=== PATIENT | female | born 1965 | race Caucasian/White ===

== ENCOUNTER 2018-04-08 18:25 | Emergency (ER) | payer MEDICARE, MEDICAID ==
[~2018-04-08] VITALS: Ht 170.2 cm; Wt 64.2 kg
[2018-04-08] MEDS ORDERED: traMADol 50MG tablet PO ONE (20:10)
[2018-04-08] MEDS ORDERED: ketorolac trometh inj. 60 MG/2 ML VIAL IM ONE (20:10)
[2018-04-08 20:22] VITALS: BP 151/90
== END 2018-04-08 20:23 | disposition home or self-care (01) ==
LOC: ER 18:26
DX: M79.604 Pain in right leg (principal); Z88.7 Allergy status to serum and vaccine
CPT/HCPCS: 96372; 99283; J1885

== ENCOUNTER 2018-07-31 20:38 | Emergency (ER) | payer MEDICARE, MEDICAID ==
[~2018-07-31] VITALS: Ht 170.2 cm; Wt 65.5 kg
[2018-07-31 21:17] LABS: BASOPHILS # (AUTO) 0.2 X10'3 (0-0.2); BASOPHILS % (AUTO) 1.9 % (0-1); EOSINOPHILS # (AUTO) 0.2 X10'3 (0-0.9); EOSINOPHILS % (AUTO) 2.4 % (0-6); HEMATOCRIT 34.3 % (35.0-45.0); HEMOGLOBIN 11.9 g/dl (12.0-16.0); LYMPHOCYTES # (AUTO) 3.8 X10'3 (1.1-4.8); LYMPHOCYTES % (AUTO) 37.9 % (21-51); MEAN CORPUSCULAR HEMOGLOBIN 34.7 PG (27.0-31.0); MEAN CORPUSCULAR HGB CONC 34.7 % (33.0-36.5); MEAN CORPUSCULAR VOLUME 99.9 FL (78-98); MEAN PLATELET VOLUME 8.6 FL (7.4-10.4); MONOCYTES % (AUTO) 9.9 % (2-12); NEUTROPHILS # (AUTO) 4.9 X10'3 (1.8-7.7); NEUTROPHILS % (AUTO) 47.9 % (42-75); PLATELET COUNT 105 X10'3 (140-440); RED BLOOD COUNT 3.43 X10'6 (4.20-5.60); RED CELL DISTRIBUTION WIDTH 13.1 % (11.5-14.5); WHITE BLOOD COUNT 10.1 X10'3 (4.5-11.0)
[2018-07-31 21:26] LABS: INR 1.5 INR; PROTHROMBIN TIME 14.9 SECONDS (9.0-12.0)
[2018-07-31 21:28] LABS: ALANINE AMINOTRANSFERASE 40 U/L (12-78); ALBUMIN 2.4 G/DL (3.4-5.0); ALBUMIN/GLOBULIN RATIO 0.6 (1.1-1.5); ALKALINE PHOSPHATASE 182 IU/L (46-116); ANION GAP 1 (8-16); ASPARTATE AMINO TRANSFERASE 77 U/L (10-37); BILIRUBIN,TOTAL 3.1 MG/DL (0.1-1.0); BLOOD UREA NITROGEN 18 MG/DL (7-18); BUN/CREATININE RATIO 24.3 (6.6-38.0); CALCIUM 8.1 MG/DL (8.5-10.1); CHLORIDE 101 MMOL/L (99-107); CREATININE 0.74 MG/DL (0.40-0.90); LIPASE 306 U/L (73-393); POTASSIUM 3.1 MMOL/L (3.5-5.1); SODIUM 144 MMOL/L (135-145); TOTAL PROTEIN 6.2 G/DL (6.4-8.2); eGFR 82 ML/MIN
[2018-07-31 21:45] LABS: GLUCOSE 116 MG/DL (70-104); TOTAL CARBON DIOXIDE 42.5 MMOL/L (24-32)
[2018-07-31] MEDS ORDERED: ondansetron/PF 4mg/2ml inj IV ONE (21:45)
[2018-07-31] MEDS ORDERED: morphine 4 MG/ML inj SYRINge IV PRN (21:45)
[2018-07-31] MEDS ORDERED: normal saline 1000ML IV soln IVB ONE (21:45)
[2018-07-31] MEDS ORDERED: potassium 10mEq/100ml NS w/LIDOcaine (10mg/bag) IV ONE (22:00)
[2018-07-31 23:09] VITALS: BP 111/56
[2018-07-31] MEDS ORDERED: SUCR1TAB34 PO (23:25)
[2018-07-31] MEDS ORDERED: ONDA8TAB9 PO (23:25)
== END 2018-08-01 00:15 | disposition home or self-care (01) ==
LOC: ER 20:39
DX: R10.84 Generalized abdominal pain (principal); K59.00 Constipation, unspecified; R11.10 Vomiting, unspecified; I10 Essential (primary) hypertension; F17.200 Nicotine dependence, unspecified, uncomplicated; Z88.7 Allergy status to serum and vaccine; Z87.440 Personal history of urinary (tract) infections; Z90.722 Acquired absence of ovaries, bilateral
CPT/HCPCS: 36415; 74176; 80053; 83690; 85025; 85610; 96361; 96374; 96375; 99285; J2270; J2405; J3480

== ENCOUNTER 2018-11-10 07:31 | Outpatient (CLI) | payer MEDICARE, MEDICAID ==
[~2018-11-10] VITALS: Ht 170.2 cm; Wt 65.9 kg
[2018-11-10] VITALS (8 sets, daily range): BP systolic 114–147; BP diastolic 66–85
[~2018-11-10 07:31] MED LIST: ONDA8TAB9 PO; SUCR1TAB34 PO
[2018-11-10] MEDS ORDERED: aminophylline 250mg/10ml inj. IV PRN (08:40)
[2018-11-10] MEDS ORDERED: nitroGLYCERIN 0.4mg SUBLingual tab SL PRN (08:40)
[2018-11-10] MEDS ORDERED: normal saline 500ml IV soln 500 ML IV ONE (08:40)
[2018-11-10] MEDS ORDERED: regadenoson 0.4mg/5ml syringe IV ONE ×2 (08:40→09:33)
[2018-11-10] MEDS ORDERED: FURO20TA4 PO (09:15)
[2018-11-10] MEDS ORDERED: LACT10SO6 PO (09:15)
[2018-11-10] MEDS ORDERED: DIAZ10TA5 PO (09:15)
[2018-11-10] MEDS ORDERED: PANT-47 PO (09:16)
[2018-11-10] MEDS ORDERED: THIA100T73 PO (09:16)
[2018-11-10] MEDS ORDERED: FOLI1TAB16 PO (09:16)
[2018-11-10] MEDS ORDERED: aminophylline inj. 10 ML IV ONE (09:33)
== END 2018-11-10 23:59 | disposition home or self-care (01) ==
LOC: RAD 07:31
PROVIDERS: ATTEND Internal Medicine Cardiovascular Disease
DX: Z01.810 Encounter for preprocedural cardiovascular examination (principal); I10 Essential (primary) hypertension; R06.02 Shortness of breath; Z79.899 Other long term (current) drug therapy; Z87.891 Personal history of nicotine dependence
CPT/HCPCS: 78452; 93017; A9500; J0280; J7030

== ENCOUNTER 2020-03-16 11:58 | Day surgery (SDC) | payer MEDICARE, MEDICAID ==
[~2020-03-16] VITALS: Ht 170.2 cm; Wt 77.3 kg
[~2020-03-16 11:58] MED LIST changes: +DIAZ10TA5 PO; +FOLI1TAB16 PO; +FURO20TA4 PO; +LACT10SO57 PO; +PANT-47 PO; +THIA100T73 PO
[2020-03-16 12:10] VITALS: BP 129/85
[2020-03-16] MEDS ORDERED: MIDAZolam 5mg/5ml vial ONE (12:22)
[2020-03-16] MEDS ORDERED: SPIR25TA5 PO (12:22)
[2020-03-16] MEDS ORDERED: HYDR-3686 PO (12:22)
[2020-03-16] MEDS ORDERED: fentaNYL/PF 50MCG/1 ML 2ML syringe ONE (12:22)
[2020-03-16] MEDS ORDERED: LIDOcaine Viscous 15ml cup ONE (12:22)
[2020-03-16] MEDS ORDERED: OMEP-50 PO (12:23)
[2020-03-16] MEDS ORDERED: LACT10SO PO (12:24)
[2020-03-16] MEDS ORDERED: ASPI-1265 PO (12:27)
[2020-03-16] MEDS ORDERED: FURO-150 PO (12:28)
[2020-03-16] MEDS ORDERED: PANT-47 PO (12:28)
[2020-03-16] MEDS ORDERED: METO50TA7 PO (12:30)
[2020-03-16] MEDS ORDERED: POTA8CAP20 PO (12:30)
[2020-03-16] MEDS ORDERED: GABA-530 PO (12:31)
[2020-03-16] MEDS ORDERED: livaplex (12:32)
[2020-03-16] MEDS ORDERED: MIRT15TA PO (12:33)
[2020-03-16 12:43] VITALS: BP 137/82
[2020-03-16 12:53] VITALS: BP 141/81
[2020-03-16 13:03] VITALS: BP 155/79
[2020-03-16 13:13] VITALS: BP 150/85
== END 2020-03-16 13:35 | disposition home or self-care (01) ==
LOC: GI LAB 11:58
PROVIDERS: ATTEND Internal Medicine Gastroenterology
DX: K74.60 Unspecified cirrhosis of liver (principal); I85.00 Esophageal varices without bleeding; K44.9 Diaphragmatic hernia without obstruction or gangrene; K76.6 Portal hypertension; K31.89 Other diseases of stomach and duodenum
CPT/HCPCS: 43235; G0500; J2250; J3010; J7040; 99152; A4620